=== PATIENT | female | born 1990 | race Caucasian/White ===

== ENCOUNTER 2022-01-02 13:26 | Inpatient (IN) | payer OTHER ==
[~2022-01-02] VITALS: Ht 165.1 cm; Wt 79.4 kg
[2022-01-02] MEDS ORDERED: CYCLOBENZAPRINE 10 MG TABLET PO ONE ×2 (14:30→19:30)
[2022-01-02] MEDS ORDERED: IBUPROFEN 600 MG TABLET PO ONE ×2 (14:30→20:00)
[2022-01-02] MEDS ORDERED: CYCLOBENZAPRINE 10 MG TABLET ONE (14:37)
[2022-01-02] MEDS ORDERED: IBUPROFEN 600 MG TABLET ONE ×2 (14:37→20:19)
[2022-01-02] MEDS: LIDOCAINE 5% (PATCH) 1 EA PATCH TP SCH (14:39)
--- NOTE | 2022-01-02 15:55 | NUR ---
CONTACTED DR. ECHEVERRIA.
--- NOTE | 2022-01-02 16:25 | NUR ---
CALLED LILY GONZÁLES CREDIT CARD CONTROL CLERK PAGED.
[2022-01-02] MEDS ORDERED: IOHEXOL-300 100 ML VIAL IV ONE ×2 (16:50→18:45)
[2022-01-02] MEDS ORDERED: IV NS 0.9% 250 ML IV ONE (16:50)
[2022-01-02] MEDS ORDERED: MORPHINE SULFATE INJ 2 MG/ML DISP.SYRIN IV ONE (17:00)
[2022-01-02] MEDS ORDERED: IV NS 0.9% 1,000 ML BAG IV ONE (17:00)
--- NOTE | 2022-01-02 17:35 | NUR ---
CALLED LILY GONZÁLES FLAVOR EXTRACTOR PAGED.
--- NOTE | 2022-01-02 17:59 | NUR ---
COVID 19 ANTIGEN SPECIMEN COLLECTED AND SENT TO LAB
--- NOTE | 2022-01-02 18:07 | NUR ---
DR. ECHEVERRIA SPEAKING WITH DR. MARTIN
--- NOTE | 2022-01-02 18:23 | NUR ---
MOVE SHEET SUBMITTED.
[2022-01-02] MEDS ORDERED: MORPHINE SULFATE INJ 2 MG/ML DISP.SYRIN ONE (18:31)
--- NOTE | 2022-01-02 18:56 | NUR ---
PT TAKEN FOR CT
[2022-01-02 19:11] LABS: CALCIUM, SERUM 9.1 mg/dL (8.5-10.1); CREATININE 0.8 mg/dL (0.6-1.3); POTASSIUM 3.8 mmol/L (3.5-5.1)
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
[2022-01-02 20:21] LABS: BASOPHILS % (AUTO) 0.3 % (0.0-2.0); EOSINOPHILS % (AUTO) 0.2 % (0.0-6.0); HEMATOCRIT 41 % (33-45); HEMOGLOBIN 13.4 g/dL (11.5-14.8); LYMPHOCYTES # (AUTO) 1.6 K/uL (0.8-4.8); LYMPHOCYTES % (AUTO) 10.8 % (20.0-44.0); MEAN CORPUSCULAR HGB CONC 33 g/dl (31.0-36.0); MEAN CORPUSCULAR VOLUME 87 fL (82-100); MONOCYTES # (AUTO) 0.4 K/uL (0.1-1.30); MONOCYTES % (AUTO) 2.7 % (2.0-12.0); NEUTROPHILS # (AUTO) 13.1 K/uL (1.8-8.9); PLATELET COUNT (AUTO) 305 K/uL (150-450); RED BLOOD CELL COUNT(AUTO) 4.68 MIL/uL (4.0-5.2); WHITE BLOOD COUNT (AUTO) 15.2 K/uL (4.3-11.0)
--- NOTE | 2022-01-02 20:30 | NUR ---
SEEN BY [place] MARSH AT BEDSIDE.
[2022-01-02] MEDS ORDERED: MAGNESIUM HYDROXIDE 30 ML UDC PO PRN (21:00)
[2022-01-02] MEDS ORDERED: ZOLPIDEM TARTRATE 5 MG TABLET PO PRN (21:00)
[2022-01-02] MEDS ORDERED: Z GUARD REMEDY 4 OZ OINT TP PRN (21:00)
[2022-01-02] MEDS ORDERED: HYDROCODONE/APAP 10/325MG TABLET PO PRN ×2 (21:00→21:30)
[2022-01-02] MEDS ORDERED: ACETAMINOPHEN 325 MG TABLET PO PRN (21:00)
[2022-01-02] MEDS ORDERED: ONDANSETRON HCL/PF 4 MG/2 ML VIAL IVP PRN (21:00)
[2022-01-02] MEDS ORDERED: MAG HYDROX/AL HYDROX/SIMETH 30 ML UDC PO PRN (21:00)
[2022-01-02] MEDS ORDERED: HYDROMORPHONE 1 MG/1 ML DISP.SYRIN IV ONE (21:30)
--- NOTE | 2022-01-02 21:31 | NUR ---
REPORT GIVEN TO REGINA HARDY
--- NOTE | 2022-01-02 21:55 | NUR ---
TRANSFERRED PATIENT TO ROOM
--- NOTE | 2022-01-02 22:00 | NUR ---
MS SPICE MILLER HAMMER MILL NOTE PATIENT TRANSFERRED VIA GURNEY TO UNIT AT THIS TIME. PT ADMITTED TO MS UNIT FROM ER UNDER FLIGHT OPERATIONS COORDINATOR [facility] FOR ADMITTING DX LUMBAR FRACTURE. A/O X4 AND ABLE TO MAKE NEEDS KNOWN. PT STABLE ON ROOM AIR. NO SOB OR S/S OF RESPIRATORY DISTRESS. BREATHING EVEN AND UNLABORED. COMPLAINTS OF PAIN IN LOWER BACK 12/31, MEDICATION PROVIDED ORDERED. IV ACCESS SYEDA MIDLINE, INTACT AND PATENT, RUNNING NS @ 75 ML/HR. PT ORIENTED TO UNIT, STAFF, AND ROOM. PT BELONGINGS ACCOUNTED FOR AND BELONGINGS LIST SIGNED. SNACKS PROVIDED UPON REQUEST. SAFETY MEASURES IN PLACE: BED IN LOWEST LOCKED POSITION, SIDE RAILS UP X 2, CALL LIGHT AND TRAY TABLE WITHIN EASY REACH. WILL CONTINUE TO MONITOR.
[2022-01-02 23:14] VITALS: BP 139/88
[2022-01-02 23:27] VITALS: BP 139/88
[2022-01-02 23:39] LABS: ALBUMIN 3.7 g/dL (3.4-5.0); BILIRUBIN,DIRECT 0.1 mg/dL (0.0-0.2); BILIRUBIN,TOTAL 0.2 mg/dL (0.2-1.0); TOTAL PROTEIN, SERUM 7.6 g/dL (6.4-8.2)
[2022-01-03] MEDS: HYDROMORPHONE INJ 2 MG/ML DISP.SYRIN IV PRN ×6 (02:00→22:39)
--- NOTE | 2022-01-03 02:00 | NUR ---
PT COMPLAINED OF PAIN 10/10 TO LOWER BACK. PT JUST RECEIVED 1 MG DILAUDID IVP FOR SEVERE PAIN. 1 MG WASTED IN RX DESTROYER AND WITNESSED BY HAYLEY TAPIA.
[2022-01-03] MEDS: IV NS 0.9% 1,000 ML IV PRN (05:26)
[2022-01-03 05:56] LABS: BASOPHILS # (AUTO) 0.1 K/uL (0.0-0.2); BASOPHILS % (AUTO) 0.8 % (0.0-2.0); EOSINOPHILS % (AUTO) 2.1 % (0.0-6.0); HEMATOCRIT 36 % (33-45); HEMOGLOBIN 12.1 g/dL (11.5-14.8); LYMPHOCYTES # (AUTO) 2.9 K/uL (0.8-4.8); LYMPHOCYTES % (AUTO) 34.7 % (20.0-44.0); MEAN CORPUSCULAR HGB CONC 34 g/dl (31.0-36.0); MEAN CORPUSCULAR VOLUME 87 fL (82-100); MONOCYTES # (AUTO) 0.5 K/uL (0.1-1.30); MONOCYTES % (AUTO) 5.8 % (2.0-12.0); NEUTROPHILS # (AUTO) 4.7 K/uL (1.8-8.9); NEUTROPHILS % (AUTO) 56.6 % (43.0-81.0); PLATELET COUNT (AUTO) 255 K/uL (150-450); RED BLOOD CELL COUNT(AUTO) 4.13 MIL/uL (4.0-5.2); WHITE BLOOD COUNT (AUTO) 8.4 K/uL (4.3-11.0)
[2022-01-03 06:12] LABS: ALBUMIN 2.9 g/dL (3.4-5.0); BILIRUBIN,TOTAL 0.2 mg/dL (0.2-1.0); CALCIUM, SERUM 7.7 mg/dL (8.5-10.1); CREATININE 0.7 mg/dL (0.6-1.3); MAGNESIUM 2.1 mg/dL (1.8-2.4); PHOSPHORUS 4.2 mg/dL (2.5-4.9); POTASSIUM 3.2 mmol/L (3.5-5.1); TOTAL PROTEIN, SERUM 6.1 g/dL (6.4-8.2)
--- NOTE | 2022-01-03 06:15 | NUR ---
PT COMPLAINED OF PAIN 10/10 TO LOWER BACK. PT JUST RECEIVED 1 MG DILAUDID IVP FOR SEVERE PAIN. 1 MG WASTED IN PHARMACEUTICAL WASTE AND WITNESSED BY HAYLEY TAPIA.
--- NOTE | 2022-01-03 06:39 | NUR ---
MS SPONGE MAKER NOTE PT ADMITTED TO MS UNIT FROM ER UNDER SENIOR BUSINESS BROKER [facility] FOR ADMITTING DX LUMBAR FRACTURE. A/O X4 AND ABLE TO MAKE NEEDS KNOWN. PT STABLE ON ROOM AIR. NO SOB OR S/S OF RESPIRATORY DISTRESS. BREATHING EVEN AND UNLABORED. COMPLAINTS OF PAIN IN LOWER BACK 12/31, MEDICATION PROVIDED ORDERED. IV ACCESS SYEDA MIDLINE, INTACT AND PATENT, RUNNING NS @ 75 ML/HR. SAFETY MEASURES MAINTAINED: BED IN LOWEST LOCKED POSITION, SIDE RAILS UP X 2, CALL LIGHT AND TRAY TABLE WITHIN EASY REACH. WILL ENDORSE TO NEXT SHIFT FOR LEXII. Addendum: 01/03/22 at 0642 by ALVARADO ARMSTRONG RN *CLOSING NOTE
--- NOTE | 2022-01-03 07:02 | NUR ---
MS RN OPENING NOTES RECEIVED PATIENT AWAKE IN BED, A/Ox4, ABLE TO MAKE NEEDS KNOWN. ON ROOM AIR NO S/S OF RESPIRATORY DISTRESS, NO S/S OF PAIN OR DISCOMFORT NOTED. IV ACCESS SYEDA MIDLINE #18 WITH NS RUNNING @75 ML/HR. PATIENT IS CONTINENT USES BEDPAN. SKIN ISSUES: L KNEE ABRASION AND R CARTER BRUISE. SAFETY MEASURES IN PLACE: BED LOCKED AND IN LOWEST POSITION, SIDE RAILS UP x2, CALL LIGHT WITHIN REACH, HOB ELEVATED SLIGHTLY. WILL CONTINUE TO MONITOR.
[2022-01-03 08:00] VITALS: BP 136/81
[2022-01-03] MEDS ORDERED: DESO1TAB4 PO (08:53)
[2022-01-03] MEDS ORDERED: DEXT20TA6 PO (08:53)
[2022-01-03] MEDS ORDERED: CETI10TA14 PO (08:53)
[2022-01-03] MEDS ORDERED: POTASSIUM CHLORIDE 20 MEQ TAB.PRT.SR PO SCH (10:00)
--- NOTE | 2022-01-03 10:30 | NUR ---
RN NOTES PATIENT COMPLAINED OF PAIN, PRN DILAUDID ADMINISTERED @1010, WILL CONTINUE TO MONITOR.
[2022-01-03] MEDS: IBUPROFEN 400 MG TABLET PO PRN ×2 (11:47→20:14)
[2022-01-03] MEDS: CYCLOBENZAPRINE 10 MG TABLET PO PRN ×2 (11:57→20:21)
--- NOTE | 2022-01-03 12:00 | NUR ---
RN NOTES PATIENT COMPLAINED OF PAIN, PRN MOTRIN ADMINISTERED @1147, WILL CONTINUE TO MONITOR.
[2022-01-03] MEDS: LIDOCAINE 5% (PATCH) 1 EA PATCH TP SCH (13:48)
--- NOTE | 2022-01-03 14:45 | NUR ---
RN NOTES PATIENT COMPLAINED OF PAIN, PRN DILAUDID ADMINISTERED @1432, WILL CONTINUE TO MONITOR.
[2022-01-03 16:00] VITALS: BP 150/80
--- NOTE | 2022-01-03 18:39 | NUR ---
MS RN CLOSING NOTES PATIENT AWAKE IN BED, A/Ox4, ABLE TO MAKE NEEDS KNOWN. STABLE ON ROOM AIR NO S/S OF RESPIRATORY DISTRESS, NO S/S OF PAIN OR DISCOMFORT NOTED. IV ACCESS SYEDA MIDLINE #18 WITH NS RUNNING @75 ML/HR. PATIENT IS CONTINENT USES BEDPAN. SKIN ISSUES: L KNEE ABRASION AND R CARTER BRUISE. ALL PRESCRIBED MEDICATION ADMINISTERED. SAFETY MEASURES MAINTAINED: BED LOCKED AND IN LOWEST POSITION, SIDE RAILS UP x2, CALL LIGHT WITHIN REACH, HOB ELEVATED SLIGHTLY. WILL ENDORSE TO NEXT SHIFT ANY LEXII.
--- NOTE | 2022-01-03 19:17 | NUR ---
RN OPENING NOTE PATIENT IN BED, AWAKE. A/O X 4, ABLE TO MAKE NEEDS KNOWN. PATIENT IS ON RA, TOLERATING WELL, NO SOB NOTED. PATIENT HAS A SYEDA MIDLINE WITH NS INFUSING WELL. PATIENT DOES NOT REPORT OF ANY PAIN AT THIS TIME, RECENTLY GIVEN PAIN MEDICATION. SAFETY MEASURES IN PLACE: BED LOCKED AND IN LOWEST POSITION, CALL LIGHT WITHIN REACH, SIDE RAILS UP. WILL MONITOR PATIENT CLOSELY.
[2022-01-03] MEDS ORDERED: ALPR0.5T PO (19:35)
[2022-01-03 20:00] VITALS: BP 141/52
--- NOTE | 2022-01-03 20:21 | NUR ---
RN NOTE PATIENT GIVEN FLEXERIL AND MOTRIN TO HELP MANAGE PAIN ON HER BACK.
--- NOTE | 2022-01-03 22:40 | NUR ---
RN NOTE PATIENT GIVEN DILAUDID FOR HER BACK PAIN. PATIENT ALSO REQUESTED THAT THE IV FLUIDS TO BE OFF THROUGH THE NIGHT SO THAT SHE COULD SLEEP. SHE STATES SHE DOES NOT WANT TO KEEP USING THE BEDPAN AND THAT SHE KNOWS IT IS BEST FOR HER TO BE ABLE TO REST.
[2022-01-04] MEDS: HYDROMORPHONE INJ 2 MG/ML DISP.SYRIN IV PRN ×5 (02:47→18:54)
--- NOTE | 2022-01-04 02:47 | NUR ---
RN NOTE PATIENT COMPLAINING OF 8/10 PAIN ON HER BACK. DILAUDID GIVEN.
--- NOTE | 2022-01-04 06:52 | NUR ---
RN CLOSING NOTE PATIENT IN BED, AWAKE. A/O X 4, ABLE TO MAKE NEEDS KNOWN. PATIENT IS ON RA, TOLERATING WELL, NO SOB NOTED. PATIENT HAS A SYEDA MIDLINE, SALINE LOCKED ONLY. PATIENT VERBALIZES THAT SHE DOES NOT WANT IT ON AT THIS TIME SINCE SHE "USES THE BEDPAN EVERY 45 MINS" AND DID NOT WANT TO KEEP DOING THAT. MANAGED PAIN WITH DILAUDID IV, MOTRIN, AND FLEXERIL. NEURO CHECKS Q4HRS COMPLETED, NO CHANGES IN PATIENT'S NEURO STATUS. SAFETY MEASURES IN PLACE: BED LOCKED AND IN LOWEST POSITION, CALL LIGHT WITHIN REACH, SIDE RAILS UP. ALL NEEDS MET AND ATTENDED. ALL ORDERS CARRIED OUT. WILL ENDORSE TO DAY SHIFT NURSE FOR LEXII.
[2022-01-04 07:00] VITALS: BP 151/87
[2022-01-04 08:06] LABS: CALCIUM, SERUM 8.9 mg/dL (8.5-10.1); CREATININE 0.8 mg/dL (0.6-1.3); POTASSIUM 4.1 mmol/L (3.5-5.1)
[2022-01-04] MEDS: IBUPROFEN 400 MG TABLET PO PRN ×3 (08:23→22:03)
[2022-01-04] MEDS: CYCLOBENZAPRINE 10 MG TABLET PO PRN ×3 (08:23→22:05)
--- NOTE | 2022-01-04 08:30 | NUR ---
RN NOTES PATIENT COMPLAINED OF PAIN, MOTRIN AND FLEXERIL, MEDICATION ADMINISTERED @0823, WILL CONTINUE TO MONITOR.
[2022-01-04] MEDS: ALPRAZOLAM 0.25 MG TABLET PO PRN (09:56)
--- NOTE | 2022-01-04 10:30 | NUR ---
RN NOTES PRN XANAX GIVEN PATIENT WAS FEELING ANXIOUS ABOUT PHYSICAL THERAPY. WILL CONTINUE TO MONITOR.
--- NOTE | 2022-01-04 11:17 | NUR ---
RN NOTES PATIENT COMPLAINED OF PAIN, PRN DILAUDID ADMINISTERED @1051, WILL CONTINUE TO MONITOR.
[2022-01-04] MEDS: LIDOCAINE 5% (PATCH) 1 EA PATCH TP SCH (13:38)
--- NOTE | 2022-01-04 15:00 | NUR ---
RN NOTES PATIENT COMPLAINED OF PAIN, PRN DILAUDID GIVEN @0634, WILL CONTINUE TO MONITOR.
[2022-01-04 16:00] VITALS: BP 150/99
--- NOTE | 2022-01-04 16:23 | NUR ---
RN NOTES PATIENT COMPLAINED OF PAIN, PRN MOTRIN AND FLEXRIL ADMINISTERED @1605, WILL CONTINUE TO MONITOR.
--- NOTE | 2022-01-04 18:38 | NUR ---
MS RN CLOSING NOTES PATIENT AWAKE IN BED, A/Ox4, ABLE TO MAKE NEEDS KNOWN. STABLE ON ROOM AIR NO S/S OF RESPIRATORY DISTRESS, NO S/S OF PAIN OR DISCOMFORT NOTED. IV ACCESS SYEDA MIDLINE #18 SL. PATIENT IS REFUSING IV FLUIDS AT NIGHT. PATIENT IS CONTINENT USES BEDPAN. SKIN ISSUES: L KNEE ABRASION AND R CARTER BRUISE. ALL PRESCRIBED MEDICATION ADMINISTERED. SAFETY MEASURES MAINTAINED: BED LOCKED AND IN LOWEST POSITION, SIDE RAILS UP x2, CALL LIGHT WITHIN REACH, HOB ELEVATED SLIGHTLY. WILL ENDORSE TO NEXT SHIFT ANY LEXII.
[2022-01-04 20:00] VITALS: BP 163/97
--- NOTE | 2022-01-04 22:08 | NUR ---
RN NOTE PATIENT C/O BACK PAIN AND WANTED TO TAKE MOTRIN AND FLEXERIL AT THIS TIME. PRN MOTRIN 400 MG AND FLEXERIL 5 MG PO ADMINISTERED ORDERED BY .
[2022-01-04] MEDS: GABAPENTIN 300 MG CAPSULE PO SCH (22:30)
[2022-01-04] MEDS: DOCUSATE SODIUM 100 MG CAPSULE PO SCH (22:30)
--- NOTE | 2022-01-04 22:43 | NUR ---
RN NOTE PER PATIENT LATANYA COVARRUBIAS HAD SEEN THE PATIENT AND INFORMED THE PATIENT THAT GABAPENTIN AND COLACE WILL BE ADDED FOR THE PATIENT. VERIFIED WITH LATANYA COVARRUBIAS AND LATANYA ORDERED GABAPENTIN, COLACE AND MIRALAX. ORDERS NOTED AND CARRIED OUT. MEDICATION ADMINISTERED ORDERED.
--- NOTE | 2022-01-04 23:05 | NUR ---
RN NOTE PATIENT REFUSED TO HAVE IV FLUIDS AT NIGHT, PER PATIENT SHE IS DRINKING PLENTY OF FLUIDS AND WANTS TO SLEEP BETTER AT NIGHT WITHOUT BEING CONNECTED TO IVF LINE.
[2022-01-05] MEDS: HYDROMORPHONE INJ 2 MG/ML DISP.SYRIN IV PRN ×5 (02:08→18:53)
[2022-01-05] MEDS: IBUPROFEN 400 MG TABLET PO PRN ×4 (04:03→22:26)
--- NOTE | 2022-01-05 04:06 | NUR ---
RN NOTE PATIENT C/O LOWER BACK PAIN 05/31 AND WANTED TO TAKE MOTRIN AT THIS TIME. PER PATIENT REQUEST, PRN MOTRIN 400 MG PO ADMINISTERED. WILL CONTINUE TO MONITOR.
--- NOTE | 2022-01-05 07:23 | NUR ---
RN OPENING NOTES RECEIVED PATIENT IN BED AWAKE, A/O X4, VERBALLY RESPONSIVE. NO SIGNS OF ACUTE DISTRESS NOTED. ON ROOM AIR, TOLERATING WELL. NO SOB NOTED, BREATHING EVEN AND UNLABORED. NO C/O PAIN AT THIS TIME. NOTED WITH LEFT UPPER ARM MIDLINE, INTACT AND PATENT. SAFETY MEASURE IN PLACE. BED IN LOWEST AND LOCKED POSITION, SIDE RAILS UP X2, CALL LIGHT PLACED WITHIN EASY REACH. WILL CONTINUE TO MONITOR PATIENT.
[2022-01-05 08:00] VITALS: BP 147/102
[2022-01-05] MEDS: DOCUSATE SODIUM 100 MG CAPSULE PO SCH ×2 (08:21→16:30)
[2022-01-05] MEDS: GABAPENTIN 300 MG CAPSULE PO SCH ×3 (08:21→16:30)
[2022-01-05] MEDS: POLYETHYLENE GLYCOL 3350 17 GM POWD.PACK PO SCH (08:24)
[2022-01-05] MEDS: ALPRAZOLAM 0.25 MG TABLET PO PRN ×3 (09:03→22:33)
--- NOTE | 2022-01-05 10:14 | NUR ---
RN NOTES PATIENT COMPLAINED OF PAIN, PRN DILAUDID ADMINISTERED @1014, WILL CONTINUE TO MONITOR.
[2022-01-05] MEDS: CYCLOBENZAPRINE 10 MG TABLET PO PRN ×2 (10:17→16:33)
--- NOTE | 2022-01-05 10:17 | NUR ---
RN NOTES PATIENT COMPLAINED OF PAIN, PRN MOTRIN AND FLEXERIL ADMINISTERED @1017, WILL CONTINUE TO MONITOR.
[2022-01-05] MEDS: LIDOCAINE 5% (PATCH) 1 EA PATCH TP SCH (14:12)
--- NOTE | 2022-01-05 14:49 | NUR ---
RN NOTES PATIENT COMPLAINED OF PAIN, PRN DILAUDID ADMINISTERED @1447, WILL CONTINUE TO MONITOR.
[2022-01-05 16:00] VITALS: BP 157/97
--- NOTE | 2022-01-05 16:33 | NUR ---
RN NOTES PATIENT COMPLAINED OF PAIN, PRN MOTRIN AND FLEXERIL ADMINISTERED @1633, WILL CONTINUE TO MONITOR.
--- NOTE | 2022-01-05 18:59 | NUR ---
RN CLOSING NOTES PATIENT IN BED AWAKE, A/O X4, VERBALLY RESPONSIVE. NO SIGNS OF ACUTE DISTRESS NOTED. REMAINS STABLE ON ROOM AIR, NO SOB NOTED, BREATHING EVEN AND UNLABORED. NO SOB NOTED, BREATHING EVEN AND UNLABORED. MEDICATED FOR PAIN NEEDED. ASSISTED TO BSC, PATIENT ABLE TO TOLERATE WALKING FROM BED TO BSC WITH TLSO BRACE. LEFT UPPER ARM MIDLINE, INTACT AND PATENT, WITH NS @ 75 ML/HR RUNNING. SAFETY MEASURE IN PLACE. BED IN LOWEST AND LOCKED POSITION, SIDE RAILS UP X2, CALL LIGHT PLACED WITHIN EASY REACH. WILL ENDORSE TO NEXT SHIFT FOR CONTINUITY OF CARE.
--- NOTE | 2022-01-05 19:20 | NUR ---
MS RN OPENING NOTE RECEIVED PATIENT IN BED AWAKE, A/O X4, ABLE TO VERBALIZE NEEDS. NO SIGNS OF ACUTE DISTRESS NOTED. ON ROOM AIR, TOLERATING WELL. NO SOB NOTED, BREATHING EVEN AND UNLABORED. NO C/O PAIN OR DISCOMFORT AT THIS TIME. PT HAS LEFT UPPER ARM MIDLINE, INTACT AND PATENT. SAFETY MEASURE IN PLACE. BED IN LOWEST AND LOCKED POSITION, SIDE RAILS UP X2, CALL LIGHT WITHIN EASY REACH. WILL CONTINUE TO MONITOR PATIENT.
[2022-01-05 20:00] VITALS: BP 143/92
--- NOTE | 2022-01-05 22:34 | NUR ---
MS RN NOTE PT REQUESTED XANAX. WHEN MED WAS BROUGHT TO PT, PT STATED THAT SHE CHANGED HER MIND. SHE WOULD RATHER TAKE IT AT 0900 AM BEFORE THERAPY THAN TONIGHT. MED WAS RETURNED TO [facility].
--- NOTE | 2022-01-05 22:35 | NUR ---
MS RN NOTE XANAX WAS RETURNED TO [facility], BUT FORGOT TO ENTER THAT 2 TABS WERE RETURNED. ONLY ENTERED 1 TAB RETURNED BY ERROR.
[2022-01-06] MEDS: HYDROMORPHONE INJ 2 MG/ML DISP.SYRIN IV PRN ×5 (01:27→20:41)
--- NOTE | 2022-01-06 07:15 | NUR ---
MS RN CLOSING NOTE LEFT PATIENT IN BED SLEEPING, A/O X4, VERBALLY RESPONSIVE. NO SIGNS OF ACUTE DISTRESS. REMAINS STABLE ON ROOM AIR, NO SOB NOTED, BREATHING EVEN AND UNLABORED. MEDICATED FOR PAIN NEEDED. LEFT UPPER ARM MIDLINE, INTACT AND PATENT, WITH NS @ 75 ML/HR RUNNING. SAFETY MEASURE IN PLACE. BED IN LOWEST AND LOCKED POSITION, SIDE RAILS UP X2, CALL LIGHT PLACED WITHIN EASY REACH. WILL ENDORSE TO NEXT SHIFT FOR CONTINUITY OF CARE.
--- NOTE | 2022-01-06 07:26 | NUR ---
MS RN OPENING NOTE RECEIVED PATIENT AWAKE, RESTING IN BED. PT A/O X4, ABLE TO MAKE NEEDS KNOWN. ON RA, TOLERATING WELL. NO SOB NOTED. NOT IN ANY SIGNS OF ACUTE DISTRESS NOTED. IV ACCESS ON SYEDA MIDLINE #18G, INTACT AND PATENT. PT REFUSED IV FLUIDS INFUSION AT THIS TIME. SAFETY MEASURE IN PLACE: BED IN LOWEST AND LOCKED POSITION, SIDE RAILS UP X2, AND CALL LIGHT PLACED WITHIN EASY REACH. WILL CONTINUE TO MONITOR PT.
[2022-01-06 08:00] VITALS: BP 146/92
[2022-01-06] MEDS: GABAPENTIN 300 MG CAPSULE PO SCH ×3 (08:13→16:06)
[2022-01-06] MEDS: IBUPROFEN 400 MG TABLET PO PRN ×2 (08:13→16:20)
[2022-01-06] MEDS: DOCUSATE SODIUM 100 MG CAPSULE PO SCH ×2 (08:13→16:06)
[2022-01-06] MEDS: POLYETHYLENE GLYCOL 3350 17 GM POWD.PACK PO SCH (08:14)
--- NOTE | 2022-01-06 08:18 | NUR ---
RN NOTE PT C/O BACK PAIN, WITH PAIN SCALE LEVEL OF 8/10 AND PT REQUESTED FOR MOTRIN. MOTRIN 400MG 1 TAB ADMINISTERED ORDERED PRN Q6HR FOR PAIN. WILL MONITOR AND REASSESS PT.
--- NOTE | 2022-01-06 08:21 | NUR ---
RN NOTE PT REFUSED HER MIRALAX MEDICATION SCHEDULED AT 0900. EXPLAINED RISK AND BENEFITS X3 STILL STRONGLY REFUSED.
[2022-01-06] MEDS: CYCLOBENZAPRINE 10 MG TABLET PO PRN ×2 (09:05→18:29)
--- NOTE | 2022-01-06 09:08 | NUR ---
RN NOTE PT C/O BODY MUSCLE SPASMS AND REQUESTED FOR FLEXERIL. FLEXERIL 5MG ADMINISTERED ORDERED PRN TID FOR MUSCLE SPASMS. WILL MONITOR AND REASSESS PT.
[2022-01-06] MEDS: IV NS 0.9% 1,000 ML IV PRN (09:27)
--- NOTE | 2022-01-06 09:56 | NUR ---
RN NOTE PT C/O BACK PAIN, WITH PAIN SCALE LEVEL OF 8/10 AND PT REQUESTED FOR DILAUDID. DILAUDID 1MG IVP ADMINISTERED ORDERED PRN Q4HR FOR PAIN. PARTIAL DOSE WASTED AND WAS WITNESSED BY REGINA GUZMAN. WILL MONITOR AND REASSESS PT.
[2022-01-06] MEDS: LIDOCAINE 5% (PATCH) 1 EA PATCH TP SCH (14:13)
--- NOTE | 2022-01-06 14:25 | NUR ---
RN NOTE PT C/O BACK PAIN, WITH PAIN SCALE LEVEL OF 8/10 AND PT REQUESTED FOR DILAUDID. DILAUDID 1MG IVP ADMINISTERED ORDERED PRN Q4HR FOR PAIN. PARTIAL DOSE WASTED AND WAS WITNESSED BY REGINA HAGAN. WILL MONITOR AND REASSESS PT.
[2022-01-06 16:00] VITALS: BP 154/88
--- NOTE | 2022-01-06 16:16 | NUR ---
RN NOTE PT SEEN AND EXAMINED BY DR. LATANYA COVARRUBIAS WITH ORDERS TO DC NS IV FLUIDS. ORDERS CARRIED OUT.
--- NOTE | 2022-01-06 18:32 | NUR ---
RN NOTE PT C/O BODY MUSCLE SPASMS AND REQUESTED FOR FLEXERIL. FLEXERIL 5MG ADMINISTERED ORDERED PRN TID FOR MUSCLE SPASMS. WILL MONITOR AND REASSESS PT.
--- NOTE | 2022-01-06 19:23 | NUR ---
MS RN CLOSING NOTE PATIENT AWAKE, RESTING IN BED. PT A/O X4, ABLE TO MAKE NEEDS KNOWN. ON RA, TOLERATING WELL. NO SOB NOTED. NOT IN ANY SIGNS OF ACUTE DISTRESS NOTED. IV ACCESS ON SYEDA MIDLINE #18G, SALINE LOCK, INTACT AND PATENT. ALL NEEDS ATTENDED. KEPT CLEAN AND COMFORTABLE. SAFETY MEASURE IN PLACE: BED IN LOWEST AND LOCKED POSITION, SIDE RAILS UP X2, AND CALL LIGHT PLACED WITHIN EASY REACH. ENDORSED TO MANAGER ETHICS NURSE FOR LEXII.
[2022-01-06 20:00] VITALS: BP 151/91
[2022-01-07] MEDS: IBUPROFEN 400 MG TABLET PO PRN ×4 (01:38→22:08)
[2022-01-07] MEDS: HYDROMORPHONE INJ 2 MG/ML DISP.SYRIN IV PRN ×2 (04:19→09:47)
--- NOTE | 2022-01-07 04:19 | NUR ---
RN NOTE COVERING PRIMARY RN WHILE ON BREAK, PATIENT C/O 8/10 BACK PAIN. DILAUDID IV GIVEN ORDERED
--- NOTE | 2022-01-07 07:10 | NUR ---
MS RN CLOSING NOTE LEFT PATIENT IN BED, AWAKE. PT A/O X4, VERBALLY RESPONSIVE. NO SIGNS OF ACUTE DISTRESS. REMAINS STABLE ON ROOM AIR, NO SOB NOTED, BREATHING EVEN AND UNLABORED. MEDICATED FOR PAIN NEEDED. LEFT UPPER ARM MIDLINE, INTACT AND PATENT. PICTURES TAKEN TO LEFT KNEE, AND TO RLL. PICTURES PLACED IN CHART. SAFETY MEASURE IN PLACE. BED IN LOWEST AND LOCKED POSITION, SIDE RAILS UP X2, CALL LIGHT PLACED WITHIN EASY REACH. WILL ENDORSE TO NEXT SHIFT FOR CONTINUITY OF CARE.
--- NOTE | 2022-01-07 07:38 | NUR ---
MS RN OPENING NOTE RECEIVED PATIENT AWAKE IN BED. PT A/O X4, VERBALLY RESPONSIVE AND ABLE TO MAKE NEEDS KNOWN. ON RA, TOLERATING WELL. NO SOB NOTED. NOT IN ANY SIGNS OF ACUTE DISTRESS NOTED. IV ACCESS ON SYEDA MIDLINE #18G, INTACT AND PATENT. PT REFUSED IV FLUIDS INFUSION AT THIS TIME. SAFETY MEASURES IN PLACED : BED IN LOWEST AND LOCKED POSITION, SIDE RAILS UP X2, AND CALL LIGHT PLACED WITHIN EASY REACH. WILL CONTINUE TO MONITOR PT.
[2022-01-07 08:00] VITALS: BP 140/99
[2022-01-07] MEDS: DOCUSATE SODIUM 100 MG CAPSULE PO SCH ×2 (08:24→17:12)
[2022-01-07] MEDS: POLYETHYLENE GLYCOL 3350 17 GM POWD.PACK PO SCH (08:24)
[2022-01-07] MEDS: GABAPENTIN 300 MG CAPSULE PO SCH ×3 (08:24→17:12)
[2022-01-07] MEDS: CYCLOBENZAPRINE 10 MG TABLET PO PRN ×3 (08:24→19:31)
[2022-01-07] MEDS ORDERED: oxyCODONE HCL SR 10MG TAB.SR.12H PO PRN (11:00)
[2022-01-07] MEDS ORDERED: NALOXONE HCL 0.4 MG/ML AMPUL IV PRN (11:00)
[2022-01-07] MEDS ORDERED: oxyCODONE IR immediate release 5 MG PO PRN (12:00)
[2022-01-07] MEDS: LIDOCAINE 5% (PATCH) 1 EA PATCH TP SCH (14:36)
[2022-01-07] MEDS: ALPRAZOLAM 0.25 MG TABLET PO PRN (14:56)
--- NOTE | 2022-01-07 15:45 | NUR ---
RN NOTES PATIENT C/O THAT THE OXY IR THAT WAS GIVEN TO HER HAD A BAD REACTION AND SHE HAS SYMPTOMS OF HAVING MIGRAINE AND HER FACE IS VERY HOT , MD AWARE AND ALSO PATIENT SAID THAT MD TOLD HER THAT NO MORE LABS TO BE DONE
[2022-01-07 16:00] VITALS: BP 159/97
--- NOTE | 2022-01-07 18:50 | NUR ---
MS RN OPENING NOTE PATIENT AWAKE IN BED. PT A/O X4, VERBALLY RESPONSIVE AND ABLE TO MAKE NEEDS KNOWN. ON RA, TOLERATING WELL. NO SOB NOTED. NOT IN ANY SIGNS OF ACUTE DISTRESS , NOTED. C/O OF PAIN AND DISCOMFORT AND PAIN MEDICATION GVIEN ORDERED , AMBULATE WITH PT USING THE FWW , IV ACCESS ON SYEDA MIDLINE #18G, INTACT AND PATENT. PT REFUSED IV FLUIDS INFUSION AT THIS TIME. SAFETY MEASURES IN PLACED : BED IN LOWEST AND LOCKED POSITION, SIDE RAILS UP X2, AND CALL LIGHT PLACED WITHIN EASY REACH. ENDORSED TO NEXT SHIFT
--- NOTE | 2022-01-07 19:30 | NUR ---
RN OPENING NOTES RECEIVED PT IN BED, AWAKE, WITH MOTHER AT BEDSIDE. AOx4, ABLE TO MAKE NEEDS KNOWN. ON RA AND TOLERATING WELL. NO SOB NOTED. NO S/SX OF RESPIRATORY DISTRESS NOTED. IV ACCESS IN SYEDA MIDLINE #18G. IV IS INTACT, PATENT, AND FLUSHING WELL. SAFETY PRECAUTIONS IN PLACE: BED IN LOWEST, LOCKED POSITION, SIDERAILS UPx2, AND BRAKES ON. TABLE AND CALL LIGHT WITHIN REACH. ALL NEEDS MET AT THIS TIME.
--- NOTE | 2022-01-07 19:32 | NUR ---
RN NOTES ADMINISTERED FLEXERIL PER PT REQUEST.
[2022-01-07 20:00] VITALS: BP 139/102
[2022-01-07] MEDS: HYDROCODONE/APAP 10/325MG TABLET PO PRN (20:54)
--- NOTE | 2022-01-07 20:54 | NUR ---
RN NOTES ADMINISTERED NORCO FOR 7/10 PAIN PER MD ORDER. VS WNL.
--- NOTE | 2022-01-07 22:09 | NUR ---
RN NOTES ADMINISTERED MOTRIN PER PT REQUEST FOR PAIN.
[2022-01-08] MEDS: HYDROCODONE/APAP 10/325MG TABLET PO PRN ×4 (03:08→20:34)
--- NOTE | 2022-01-08 03:08 | NUR ---
RN NOTES ADMINISTERED NORCO FOR PAIN PER MD ORDER. VS WNL.
[2022-01-08] MEDS: IBUPROFEN 400 MG TABLET PO PRN ×2 (05:59→17:59)
--- NOTE | 2022-01-08 05:59 | NUR ---
RN NOTES ADMINISTERED MOTRIN PER PT REQUEST FOR PAIN.
--- NOTE | 2022-01-08 06:58 | NUR ---
RN CLOSING NOTES PT IN BED, ASLEEP, AWAKENS TO VERBAL STIMULI. AOx4, ABLE TO MAKE NEEDS KNOWN. ON RA AND TOLERATING WELL. NO SOB NOTED. NO S/SX OF RESPIRATORY DISTRESS NOTED. IV ACCESS IN SYEDA MIDLINE #18G. IV IS INTACT, PATENT, AND FLUSHING WELL. ALL ORDERS CARRIED OUT. ALL NEED MET. PT KEPT CLEAN AND DRY. TREATED PAIN THROUGHOUT SHIFT. SAFETY PRECAUTIONS IN PLACE: BED IN LOWEST, LOCKED POSITION, SIDERAILS UPx2, AND BRAKES ON. TABLE AND CALL LIGHT WITHIN REACH. WILL ENDORSE TO ONCOMING SHIFT FOR LEXII.
--- NOTE | 2022-01-08 07:44 | NUR ---
RN OPENING NOTE PATIENT AWAKE IN BED RESTING. A/O X4, NO PAIN NOTED AT THIS TIME. ON ROOM AIR, NO DISTRESS OR SHORTNESS OF BREATH NOTED. IV ACCESS SYEDA MIDLINE, INTACT, PATENT AND FLUSHING WELL. FALL AND SAFETY MEASURES IN PLACE, BED ALARM ON, BED IN LOW AND LOCK POSITION, CALL LIGHT AND TABLE WITHIN EASY REACH, SIDE RAILS UP X2. WILL CONTINUE TO MONITOR.
[2022-01-08 08:00] VITALS: BP 130/81
[2022-01-08] MEDS: POLYETHYLENE GLYCOL 3350 17 GM POWD.PACK PO SCH (09:00)
--- NOTE | 2022-01-08 09:00 | NUR ---
RN NOTES CARE TRANSFERRED FROM DARBY TAPIA TO REGINA DOSHI
[2022-01-08] MEDS: DOCUSATE SODIUM 100 MG CAPSULE PO SCH ×2 (09:49→16:19)
[2022-01-08] MEDS: GABAPENTIN 300 MG CAPSULE PO SCH ×3 (09:49→16:19)
[2022-01-08] MEDS ORDERED: HYDROMORPHONE 1 MG/1 ML DISP.SYRIN IV PRN (10:00)
[2022-01-08] MEDS: CYCLOBENZAPRINE 10 MG TABLET PO PRN ×3 (11:01→22:05)
--- NOTE | 2022-01-08 11:08 | NUR ---
RN NOTES PATIENT REQUESTED PRN FLEXERIL, MEDICATION ADMINISTERED, WILL CONTINUE TO MONITOR.
[2022-01-08] MEDS: LIDOCAINE 5% (PATCH) 1 EA PATCH TP SCH (13:43)
[2022-01-08] MEDS: ALPRAZOLAM 0.25 MG TABLET PO PRN (13:43)
--- NOTE | 2022-01-08 14:32 | NUR ---
RN NOTES PATIENT ASKED FOR PRN XANAX, PRN ADMINISTERED, WILL CONTINUE TO MONITOR.
[2022-01-08 16:00] VITALS: BP 146/96
--- NOTE | 2022-01-08 18:20 | NUR ---
RN NOTES PATIENT REQUESTED MOTRIN AND FLEXERIL, ADMINISTERED, WILL CONTINUE TO MONITOR.
--- NOTE | 2022-01-08 18:35 | NUR ---
MS RN CLOSING NOTES PATIENT AWAKE IN BED, A/Ox4, ABLE TO MAKE NEEDS KNOWN. STABLE ON ROOM AIR NO S/S OF RESPIRATORY DISTRESS, NO S/S OF PAIN OR DISCOMFORT NOTED. IV ACCESS SYEDA MIDLINE #18 SL. PATIENT IS CONTINENT USES BEDPAN AND COMMODE. SKIN ISSUES: L KNEE ABRASION AND R CARTER BRUISE. SAFETY MEASURES MAINTAINED: BED LOCKED AND IN LOWEST POSITION, SIDE RAILS UP x2, CALL LIGHT WITHIN REACH, HOB ELEVATED SLIGHTLY. WILL ENDORSE TO NEXT SHIFT ANY LEXII.
--- NOTE | 2022-01-08 19:24 | NUR ---
RN OPENING NOTES RECEIVED PT IN BED, AWAKE, WITH VISITORS AT BEDSIDE. AOx4, ABLE TO MAKE NEEDS KNOWN. ON RA AND TOLERATING WELL. NO SOB NOTED. NO S/SX OF RESPIRATORY DISTRESS NOTED. IV ACCESS IN SYEDA MIDLINE #18G. IV IS INTACT, PATENT, AND FLUSHING WELL. SAFETY PRECAUTIONS IN PLACE: BED IN LOWEST, LOCKED POSITION, SIDERAILS UPx2, AND BRAKES ON. TABLE AND CALL LIGHT WITHIN REACH. ALL NEEDS MET AT THIS TIME.
[2022-01-08 20:00] VITALS: BP 138/60
--- NOTE | 2022-01-08 20:34 | NUR ---
RN NOTES ADMINISTERED NORCO FOR PAIN 09/30 PER MD ORDER. VS WNL.
--- NOTE | 2022-01-08 22:05 | NUR ---
NOTES ADMINISTERED FLEXERIL PER MD ORDER.
[2022-01-09] MEDS: HYDROCODONE/APAP 10/325MG TABLET PO PRN ×5 (03:41→20:02)
--- NOTE | 2022-01-09 03:41 | NUR ---
RN NOTES ADMINISTERED NORCO FOR PAIN PER MD ORDER. VS WNL.
[2022-01-09] MEDS: IBUPROFEN 400 MG TABLET PO PRN ×3 (06:28→21:41)
--- NOTE | 2022-01-09 06:52 | NUR ---
RN CLOSING NOTES PT IN BED, ASLEEP, AWAKENS TO VERBAL STIMULI. AOx4, ABLE TO MAKE NEEDS KNOWN. ON RA AND TOLERATING WELL. NO SOB NOTED. NO S/SX OF RESPIRATORY DISTRESS NOTED. IV ACCESS IN SYEDA MIDLINE #18G. IV IS INTACT, PATENT, AND FLUSHING WELL. ALL ORDERS CARRIED OUT. ALL NEEDS MET. PT KEPT CLEAN AND DRY. PAIN TREATED THROUGHOUT SHIFT. SAFETY PRECAUTIONS IN PLACE: BED IN LOWEST, LOCKED POSITION, SIDERAILS UPx2, AND BRAKES ON. TABLE AND CALL LIGHT WITHIN REACH. WILL ENDORSE TO ONCOMING SHIFT FOR LEXII.
[2022-01-09 08:00] VITALS: BP 137/88
[2022-01-09] MEDS: POLYETHYLENE GLYCOL 3350 17 GM POWD.PACK PO SCH ×2 (09:00→09:11)
[2022-01-09] MEDS: LIDOCAINE 5% (PATCH) 1 EA PATCH TP SCH (09:11)
[2022-01-09] MEDS: DOCUSATE SODIUM 100 MG CAPSULE PO SCH ×2 (09:11→16:04)
[2022-01-09] MEDS: GABAPENTIN 300 MG CAPSULE PO SCH ×3 (09:11→16:04)
[2022-01-09] MEDS: CYCLOBENZAPRINE 10 MG TABLET PO PRN ×3 (10:25→22:05)
[2022-01-09] MEDS: ALPRAZOLAM 0.25 MG TABLET PO PRN (13:01)
[2022-01-09 16:00] VITALS: BP 139/86
--- NOTE | 2022-01-09 19:31 | NUR ---
RN CLOSING NOTE PATIENT AWAKE IN BED RESTING. A/O X4, NO PAIN NOTED AT THIS TIME. ON ROOM AIR, NO DISTRESS OR SHORTNESS OF BREATH NOTED. IV ACCESS SYEDA MIDLINE, INTACT, PATENT AND FLUSHING WELL. SCHEDULE MEDICATIONS ADMINISTERED. FALL AND SAFETY MEASURES IN PLACE, BED ALARM ON, BED IN LOW AND LOCK POSITION, CALL LIGHT AND TABLE WITHIN EASY REACH, SIDE RAILS UP X2. WILL ENDORSE TO SOCIAL DIRECTOR.
[2022-01-09 20:00] VITALS: BP 149/89
--- NOTE | 2022-01-09 20:02 | NUR ---
RN NOTES ADMINISTERED NORCO FOR PAIN PER MD ORDER. VS WNL.
[2022-01-10] MEDS: HYDROCODONE/APAP 10/325MG TABLET PO PRN ×4 (04:25→16:37)
--- NOTE | 2022-01-10 04:25 | NUR ---
RN NOTES ADMINISTERED NORCO FOR PAIN PER MD ORDER. VS WNL.
[2022-01-10] MEDS: IBUPROFEN 400 MG TABLET PO PRN ×2 (06:41→14:52)
--- NOTE | 2022-01-10 07:30 | NUR ---
RN CLOSING NOTES PT IN BED, ASLEEP, AWAKENS TO VERBAL STIMULI. AOx4, ABLE TO MAKE NEEDS KNOWN. ON RA AND TOLERATING WELL. NO SOB NOTED. NO S/SX OF RESPIRATORY DISTRESS NOTED. IV ACCESS IN SYEDA MIDLINE #18G. IV IS INTACT, PATENT, AND FLUSHING WELL. ALL ORDERS CARRIED OUT. ALL NEEDS MET. PT KEPT CLEAN AND DRY. TREATED PAIN THROUGHOUT SHIFT. SAFETY PRECAUTIONS IN PLACE: BED IN LOWEST, LOCKED POSITION, SIDERAILS UPx2, AND BRAKES ON. TABLE AND CALL LIGHT WITHIN REACH. WILL ENDORSE TO ONCOMING SHIFT FOR LEXII.
--- NOTE | 2022-01-10 07:45 | NUR ---
RN OPENING NOTE RECEIVED PATIENT ON BED AWAKE . A/O X4, NO C/O PAIN NOTED AT THIS TIME. ON ROOM AIR, NO DISTRESS OR SHORTNESS OF BREATH NOTED. IV ACCESS SYEDA MIDLINE, INTACT, PATENT AND FLUSHING WELL. FALL AND SAFETY PRECAUTIONS IN PLACED , BED ALARM ON, BED IN LOWEST POSITION , CALL LIGHT AND TABLE WITHIN EASY REACH, SIDE RAILS UP X2. WILL CONTINUE TO MONITOR.
[2022-01-10] MEDS: POLYETHYLENE GLYCOL 3350 17 GM POWD.PACK PO SCH (08:30)
[2022-01-10] MEDS: GABAPENTIN 300 MG CAPSULE PO SCH ×3 (08:30→16:36)
[2022-01-10] MEDS: DOCUSATE SODIUM 100 MG CAPSULE PO SCH ×2 (08:30→16:36)
[2022-01-10 08:59] VITALS: BP_SYST 134; BP_SYST 140; BP_DIAS 80; BP_DIAS 86
[2022-01-10] MEDS: CYCLOBENZAPRINE 10 MG TABLET PO PRN ×2 (09:48→17:17)
[2022-01-10] MEDS: LIDOCAINE 5% (PATCH) 1 EA PATCH TP SCH (14:05)
[2022-01-10] MEDS: ALPRAZOLAM 0.25 MG TABLET PO PRN (14:52)
[2022-01-10 16:00] VITALS: BP 138/86
--- NOTE | 2022-01-10 19:20 | NUR ---
RN OPENING NOTE RECEIVED PATIENT IN BED, AWAKE, A/O X4. NO C/O PAIN AT THIS TIME. ON ROOM AIR, NO DISTRESS OR SHORTNESS OF BREATH NOTED. IV ACCESS YSEDA MIDLINE, INTACT, PATENT AND FLUSHING WELL. SAFETY PRECAUTIONS IN PLACE: BED ALARM ON, BED IN LOWEST POSITION , CALL LIGHT AND BED SIDE TABLE WITHIN EASY REACH, SIDE RAILS UP X2. WILL CONTINUE TO MONITOR PT.
--- NOTE | 2022-01-10 19:40 | NUR ---
CHILD CARE LEADER NOTES PATIENT ON BED AWAKE . A/O X4,. ON ROOM AIR, NO DISTRESS OR SHORTNESS OF BREATH NOTED. IV ACCESS SYEDA MIDLINE, INTACT, PATENT AND FLUSHING WELL. ALL DUE MEDS GIVEN ORDERED AND C/O OF PAIN AND DISCOMFORT AND PAIN MEDS ORDERED , PATIENT IS WITH ORDER FOR DISCHARGE TO [facility] FOR FURTHER TREATMENT , ALL DISHCARGE PAPERS WERE PREPARED AND DISCHARGE INSTRUCTION PROVIDED TO THE PATIENT REGARDING REHAB , SAFETY PRECAUTIONS AND PAIN MEDICATIONS , PATIENT ABLE TO UNDERSTAND INSTRUCTIONS PROVIDED, WILL BE FMD TEACHER BY EMT AMBULANCE GOING TO THE HOSPITAL, ALL BELONGINGS WERE TAKEN AND FORM WAS SIGNED BY PATIENT . PATIENT WAS FMD TEACHER AROUND 1940 WITH NO PAIN , NO SOB OR DISTRESS NOTED .
--- NOTE | 2022-01-10 20:15 | NUR ---
MS RPG DEVELOPER NOTE PT IS DISCHARGED TO [facility]. DISCHARGE INSTRUCTIONS COMPLETED BY AM NURSE. PT'S MOTHER AT BED SIDE. PT LEFT IN RNEY, VIA AMBULANCE WITH ALL HER BELONGINGS. MID LINE TO LEFT UA REMOVED. PT LEFT IN STABLE CONDITION. NO PAIN , NO S/S OF ACUTE DISTRESS NOTED.
== END 2022-01-10 20:00 | DRG 347 ==
LOC: ER 13:28 → MED 21:20
PROVIDERS: ADMIT Nurse Practitioner Acute Care; ATTEND Student in an Organized Health Care Education/Training Program
PROC: 05HC33Z Insertion of Infusion Device into Left Basilic Vein, Percutaneous Approach (ICD-10-PCS; principal; 2022-01-02)
DX: S32.019A Unspecified fracture of first lumbar vertebra, initial encounter for closed fracture (principal); D72.829 Elevated white blood cell count, unspecified; E87.6 Hypokalemia; J45.909 Unspecified asthma, uncomplicated; V43.52XA Car driver injured in collision with other type car in traffic accident, initial encounter; Y92.410 Unspecified street and highway as the place of occurrence of the external cause; Z20.822 Contact with and (suspected) exposure to COVID-19; M41.9 Scoliosis, unspecified; Z79.899 Other long term (current) drug therapy; M48.00 Spinal stenosis, site unspecified; K59.00 Constipation, unspecified
CPT/HCPCS: 36415; 71045-TC; 72100-TC; 72131-TC; 80048-TC; 80053-TC; 80076-TC; 83690-TC; 83735-TC; 84100-TC; 84702-TC; 84703-TC; 85025-TC; 85730-TC; 87081-TC; 97110-TC; 97112-TC; 97116-TC; 97530-TC; C9803; G0378; J1170; J2270; J7030; J7050; Q9967